=== PATIENT | male | born 1965 | race Caucasian/White ===

== ENCOUNTER 2020-08-06 01:18 | Emergency (ER) | payer OTHER ==
[2020-08-06 01:31] VITALS: TEMP 98.5
[2020-08-06] MEDS ORDERED: HYDROmorphone 1 MG/ML 1 ML SYRINGE IVP STA (01:36)
[2020-08-06] MEDS ORDERED: KETAMINE 10 MG/ML 20 ML VIAL IV ONE (01:36)
[2020-08-06] MEDS ORDERED: SODIUM CHLORIDE 0.9% 1,000 ML IV STA (01:36)
[2020-08-06] MEDS ORDERED: DIAZEPAM 5 MG/ML 2 ML INJ IVP STA (01:36)
[2020-08-06] MEDS ORDERED: SODIUM CHLORIDE 0.9% 500 ML 500 ML IV STA (01:36)
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
[2020-08-06] MEDS ORDERED: KETAMINE 50 MG/ML 10 ML VIAL IV ONE (02:06)
[2020-08-06 02:15] LABS: Basophils # (A) 0.2 k/uL (0-0.2); Basophils % (A) 1 %; Eosinophils # (A) 0.4 k/uL (0-0.7); Eosinophils % (A) 3 %; HCT 40.9 % (39.0-53.0); HGB 13.3 gm/dL (13.0-17.5); Lymphocytes # (A) 4.2 k/uL (1.0-4.8); Lymphocytes % (A) 34 %; MCH 29.7 pg (25.0-35.0); MCHC 32.5 g/dL (31.0-37.0); MCV 91.4 fL (80.0-100.0); Mean Platelet Volume 7.2; Monocytes # (A) 0.6 k/uL (0-1.0); Monocytes % (A) 5 %; Neutrophils # (A) 6.6 k/uL (1.3-7.7); Neutrophils % (A) 54 %; Platelet Count 284 k/uL (150-450); RBC 4.47 m/uL (4.30-5.90); RDW 11.7 % (11.5-15.5); WBC 12.2 k/uL (3.8-10.6)
[2020-08-06 02:19] LABS: ALT 43 U/L (4-49); AST 73 U/L (17-59); African American GFR (CKD) >90 (>60 ml/min/1.73 sqM); Albumin 4.7 g/dL (3.5-5.0); Alkaline Phosphatase 94 U/L (38-126); Anion Gap 12 mmol/L; Blood Urea Nitrogen 18 mg/dL (9-20); Calcium 9.4 mg/dL (8.4-10.2); Carbon Dioxide 24 mmol/L (22-30); Chloride 103 mmol/L (98-107); Glucose 104 mg/dL (74-99); Non-African American GFR(CKD) 84 (>60 ml/min/1.73 sqM); Potassium 4.3 mmol/L (3.5-5.1); Sodium 139 mmol/L (137-145); Total Bilirubin 0.4 mg/dL (0.2-1.3); Total Protein 7.1 g/dL (6.3-8.2)
[2020-08-06 02:23] LABS: Alcohol 193 mg/dL
[2020-08-06 02:54] VITALS: BP 148/89; PULSE 109; RESP 19
== END 2020-08-06 02:54 | disposition other institution (70) ==
LOC: EC 01:18
DX: T23.002A Burn of unspecified degree of left hand, unspecified site, initial encounter (principal); T23.252A Burn of second degree of left palm, initial encounter; T23.222A Burn of second degree of single left finger (nail) except thumb, initial encounter; F10.129 Alcohol abuse with intoxication, unspecified; X02.1XXA Exposure to smoke in controlled fire in building or structure, initial encounter; Y92.89 Other specified places as the place of occurrence of the external cause
CPT/HCPCS: 36415; 80053; 85025; 80320; 99284; 96374; 96375; 96361; J3360; J1170

== ENCOUNTER → 2025-04-08 | Outpatient (CLI) | payer MEDICARE ==
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
== END | disposition home or self-care (01) ==
LOC: RADXRMAIN 10:13
PROVIDERS: ATTEND Family Medicine
DX: M43.16 Spondylolisthesis, lumbar region (principal); M62.838 Other muscle spasm; M54.32 Sciatica, left side
CPT/HCPCS: 72100; 73502

== ENCOUNTER 2025-04-21 13:16 | Observation (INO) | payer OTHER ==
--- NOTE | 2025-04-21 13:53 | ED ---
General Adult HPI - General Chief complaint: Nausea/Vomiting/Diarrhea Stated complaint: Dizziness,Vomiting Time Seen by Provider: 04/21/25 13:52 Source: patient, family (), RN notes reviewed, old records reviewed Mode of arrival: wheelchair Limitations: no limitations - History of Present Illness Initial comments: 60-year-old male accompanied by his presented to the ER for evaluation of nausea and vomiting. reports for the past 3-week patient has been complaining of left leg pain. He has been seen numerous times by PCP, chiropractor and once here in the emergency department given this pain. Patient was diagnosed with sciatic shingles and started on valacyclovir and Percocet for pain control on 04-09-2025. reports pain has persisted. Patient has been taking numerous medications prescribed by PCP and here in the emergency d epartment without relief of symptoms. She states today after receiving pain medication patient had numerous bouts of emesis. Patient also reports feeling dizzy but contributes this to his history of vertigo. Patient states he is extremely cold and shivering but denies known fevers. He also reports today he was having a discomfort to his central chest. No radiation of this sensation. Denies shortness of breath. No history of DVTs or PEs. No current blood thinner use. No recent travel. Patient admits to smoking marijuana. - Related Data Home Medications Medication Instructions Recorded Confirmed Multivitamins, Thera [Multivitamin 1 tab PO DAILY 04/21/25 04/21/25 (formulary)] oxyCODONE-APAP 10-325MG [Percocet 1 - 2 tab PO QID PRN 04/21/25 04/21/25 10-325 mg] predniSONE See Taper PO DIRECTED 04/21/25 04/21/25 traZODone HCL [Desyrel] 100 mg PO HS 04/21/25 04/21/25 Allergies Allergy/AdvReac Type Severity Reaction Status Date / Time rocuronium Allergy Anaphylaxis Verified 04/21/25 16:52 Review of Systems ROS Statement: Those systems with pertinent positive or pertinent negative responses have been documented in the HPI. ROS Other: All systems not noted in ROS Statement are negative. Past Medical History Past Medical History: No Reported History History of Any Multi-Drug Resistant Organisms: None Reported Past Surgical History: Appendectomy Additional Past Surgical History / Comment(s): lei left hand Past Psychological History: No Psychological Hx Reported Smoking Status: Never smoker Past Drug Use History: Marijuana General Exam Limitations: no limitations General appearance: alert, in no apparent distress, anxious Respiratory exam: Present: normal lung sounds bilaterally. Absent: respiratory distress, wheezes, rales, rhonchi, stridor Cardiovascular Exam: Present: tachycardia, irregular rhythm, normal heart sounds GI/Abdominal exam: Present: soft, normal bowel sounds. Absent: distended, tenderness, guarding, rebound, rigid Extremities exam: Present: normal inspection, full ROM, normal capillary refill. Absent: tenderness, pedal edema, joint swelling, calf tenderness Neurological exam: Present: alert, oriented X3, CN II-XII intact Skin exam: Present: warm, intact, normal color, rash (Scabbed healing zoster rash to left calf), diaphoretic (mild) Course Vital Signs 04/21/25 04/21/25 04/21/25 13:26 14:03 15:32 Temperature 97.7 F 98.2 F Pulse Rate 105 H 56 L Pulse Rate [ 113 H Cyber Transport Systems Specialist ] Respiratory 20 18 Rate Blood Pressure 149/101 142/107 O2 Sat by Pulse 100 100 Oximetry - Reevaluation(s) Reevaluation #1: 04/21/25 17:[address] Cortés who accepts admission. He was requesting neurology consultation for neuralgia of left lower extremity. EKG Findings - EKG Comments: EKG Findings:: EKG taken at 14: 38 showing atrial fibrillation with rapid ventricular response. No ST segment elevations or depressions. No T wave inversions. Ventricular rate 121, QRS duration 116, QT/QTc 341/413. Medical Decision Making - Medical Decision Making Was pt. sent in by a medical professional or institution (, PA, NURSING FACULTY, urgent care, hospital, or intermediate...) When possible be specific @ -No Did you speak to anyone other than the patient for history (EMS, parent, family, police, friend...)? What history was obtained from this source @ -Patient's , bedside, aiding in HPI and past medical history. Did you review nursing and triage notes (agree or disagree)? Why? @ -I reviewed and agree with nursing and triage notes Were old charts reviewed (outside hosp., previous admission, EMS record, old EKG, old radiological studies, urgent care reports/EKG's, intermediate records)? Report findings @ -ER visit from 04-09-2025 reviewed. Patient evaluated for left leg pain diagnosed with herpes zoster. Patient was started on valacyclovir and Percocet. Differential Diagnosis (chest pain, altered mental status, abdominal pain women, abdominal pain men, vaginal bleeding, weakness, fever, dyspnea, syncope, headache, dizziness, GI bleed, back pain, seizure, CVA, palpatations, mental health, musculoskeletal)? @ -Differential Dizziness:Benign paroxysmal positional Vertigo, Meniere's disease, otitis media, acoustic neuroma, vertebrobasilar insufficiency, cerebellar stroke, encephalitis, hypovolemic, arrhythmia, coronary artery syndrome, anemia, this is not meant to be an all-inclusive list EKG interpreted by me (3pts min.). @ -As above X-rays interpreted by me (1pt min.). @ -CXR interpreted me negative for acute cardiopulmonary process. CT interpreted by me (1pt min.). @ -None done U/S interpreted by me (1pt. min.). @ -None done What testing was considered but not performed or refused? (CT, X-rays, U/S, labs)? Why? @ -None What meds were considered but not given or refused? Why? @ -None Did you discuss the management of the patient with other professionals (professionals i.e. , PA, NURSING FACULTY, lab, RT, psych nurse, forensic social worker, aircraft body repairer, teacher, classification officer, lining caser)? Give summary @ -Yes, case discussed with Dr. Cortés for admission. Requesting neurology consultation for left lower extremity neuralgia. Was smoking cessation discussed for >3mins.? @ -No Was critical care preformed (if so, how long)? @ -Yes, 31 minutes Were there social determinants of health that impacted care today? How? (Homelessness, low income, unemployed, alcoholism, drug addiction, transportation, low edu. Level, literacy, decrease access to med. care, detention, rehab)? @ -No Was there de-escalation of care discussed even if they declined (Discuss DNR or withdrawal of care, Hospice)? DNR status @ -No What co-morbidities impacted this encounter? (DM, HTN, Smoking, COPD, CAD, Cancer, CVA, ARF, Chemo, Hep., AIDS, mental health diagnosis, sleep apnea, morbid obesity)? @ -None Was patient admitted / discharged? Hospital course, mention meds given and route, prescriptions, significant lab abnormalities, going to OR and other pertinent info. @ -Admitted. 60-year-old male presented to the ER for evaluation of nausea and vomiting.Upon arrival patient tachycardic at 105 bpm and hypertensive 149/101. Vitals otherwise stable. Upon my examination patient is mildly diaphoretic and actively vomiting during exam. EKG obtained and patient found to be in new onset atrial fibrillation with RVR ventricular rate 121 bpm. No acute evidence of infarct or ischemia. Laboratory studies remarkable for leukocytosis 11.8 with a left shift and hyperlactemia 5.2 likely reactive. Patient did receive IV fluid bolus in the emergency department. Laboratory studies otherwise unremarkable. Given new onset atrial fibrillation, troponin and D-dimer ordered. Troponin undetectable, <0.012. D-dimer negative at 0.39. Chest x-ray negative for acute process. Patient started on heparin and Cardizem along with 2 g of magnesium. 10 mg Cardizem bolus and Cardizem started at 5 mg/hr. Maintenance fluids ordered for elevated lactic acid. Patient provided with symptomatic control with IV Zofran, Tylenol and Dilaudid, with improvement upon reevaluation. Admission considered given new onset atrial fibrillation this was discussed with Dr. Cortés who accepts admission. Cardiology and neurology on consult. Patient and patient's family updated on today's finding. Patient is agreeable for admission and admitted in stable condition for further evaluation and treatment. Case discussed with ED attending, Dr. Woodard. Undiagnosed new problem with uncertain prognosis? @ -No Drug Therapy requiring intensive monitoring for toxicity (Heparin, Nitro, Insulin, Cardizem)? @ -Yes, heparin and Cardizem Were any procedures done? @ -No Diagnosis/symptom? @ -New onset atrial fibrillation/hyperlactemia Acute, or Chronic, or Acute on Chronic? @ -Acute Uncomplicated (without systemic symptoms) or Complicated (systemic symptoms)? @ -Complicated Side effects of treatment? @ -No Exacerbation, Progression, or Severe Exacerbation? @ -No Poses a threat to life or bodily function? How? (Chest pain, [place], [place], pneumonia, PE, COPD, DKA, ARF, appy, cholecystitis, CVA, Diverticulitis, Homicidal, Suicidal, threat to staff... and all critical care pts) @ -Yes, untreated atrial fibrillation can lead to increased blood clot formation which can lead to stroke. - Lab Data Result diagrams: 04/21/25 14:03 04/21/25 14:03 Lab Results 04/21/25 04/21/25 04/21/25 Range/Units 14:03 14:03 14:03 WBC 11.84 H (4.50-10.00) 10*3/uL RBC 4.51 (4.40-5.60) 10*6/uL Hgb 13.8 (13.0-17.0) g/dL Hct 39.7 (39.6-50.0) % MCV 88.0 (80.0-97.0) fL MCH 30.6 (27.0-32.0) pg MCHC 34.8 (32.0-37.0) g/dL Plt Count 292 (140-440) 10*3/uL MPV 10.4 (9.5-12.2) fL Immature Gran % (Auto) 0.5 % Neutrophils % 71.8 % Lymphocytes % 19.4 % Monocytes % 6.1 % Eosinophils % 1.4 % Basophils % 0.8 % Immature Gran # 0.06 H (0.00-0.04) 10*3/uL Neutrophils # 8.50 H (1.80-7.70) 10*3/uL Lymphocytes # 2.30 (0.90-5.00) 10*3/uL Monocytes # 0.72 (0.20-1.00) 10*3/uL Eosinophils # 0.16 (0.04-0.35) 10*3/uL Basophils # 0.10 (0.00-0.10) 10*3/uL PT (10.0-12.5) sec INR (<1.2) APTT (22.0-30.0) sec D-Dimer (<0.60) mg/L FEU Sodium 142 (137-145) mmol/L Potassium 3.5 (3.5-5.1) mmol/L Chloride 105 (98-107) mmol/L Carbon Dioxide 23 (22-30) mmol/L Anion Gap 14 mmol/L BUN 12 (9-20) mg/dL Creatinine 0.77 (0.66-1.25) mg/dL Est GFR (CKD-EPI)AfAm >90 (>60 ml/min/1.73 sqM) Est GFR (CKD-EPI)NonAf >90 (>60 ml/min/1.73 sqM) Glucose 136 H (74-99) mg/dL Lactic Ac Sepsis Rflx Plasma Lactic Acid Mo 5.2 H* (0.7-2.0) mmol/L Calcium 9.8 (8.4-10.2) mg/dL Magnesium (1.6-2.3) mg/dL Total Bilirubin 0.6 (0.2-1.3) mg/dL AST 24 (17-59) U/L ALT 35 (4-49) U/L Alkaline Phosphatase 82 (38-126) U/L Troponin I (0.000-0.034) ng/mL Total Protein 7.1 (6.3-8.2) g/dL Albumin 4.7 (3.5-5.0) g/dL Lipase 98 (23-300) U/L 04/21/25 04/21/25 04/21/25 Range/Units 14:03 15:10 16:10 WBC (4.50-10.00) 10*3/uL RBC (4.40-5.60) 10*6/uL Hgb (13.0-17.0) g/dL Hct (39.6-50.0) % MCV (80.0-97.0) fL MCH (27.0-32.0) pg MCHC (32.0-37.0) g/dL Plt Count (140-440) 10*3/uL MPV (9.5-12.2) fL Immature Gran % (Auto) % Neutrophils % % Lymphocytes % % Monocytes % % Eosinophils % % Basophils % % Immature Gran # (0.00-0.04) 10*3/uL Neutrophils # (1.80-7.70) 10*3/uL Lymphocytes # (0.90-5.00) 10*3/uL Monocytes # (0.20-1.00) 10*3/uL Eosinophils # (0.04-0.35) 10*3/uL Basophils # (0.00-0.10) 10*3/uL PT 10.8 (10.0-12.5) sec INR 1.0 (<1.2) APTT 23.0 (22.0-30.0) sec D-Dimer 0.39 (<0.60) mg/L FEU Sodium (137-145) mmol/L Potassium (3.5-5.1) mmol/L Chloride (98-107) mmol/L Carbon Dioxide (22-30) mmol/L Anion Gap mmol/L BUN (9-20) mg/dL Creatinine (0.66-1.25) mg/dL Est GFR (CKD-EPI)AfAm (>60 ml/min/1.73 sqM) Est GFR (CKD-EPI)NonAf (>60 ml/min/1.73 sqM) Glucose (74-99) mg/dL Lactic Ac Sepsis Rflx Y Plasma Lactic Acid Mo (0.7-2.0) mmol/L Calcium (8.4-10.2) mg/dL Magnesium 1.7 (1.6-2.3) mg/dL Total Bilirubin (0.2-1.3) mg/dL AST (17-59) U/L ALT (4-49) U/L Alkaline Phosphatase (38-126) U/L Troponin I (0.000-0.034) ng/mL Total Protein (6.3-8.2) g/dL Albumin (3.5-5.0) g/dL Lipase (23-300) U/L // Range/Units 16:10 WBC (4.50-10.00) 10*3/uL RBC (4.40-5.60) 10*6/uL Hgb (13.0-17.0) g/dL Hct (39.6-50.0) % MCV (80.0-97.0) fL MCH (27.0-32.0) pg MCHC (32.0-37.0) g/dL Plt Count (140-440) 10*3/uL MPV (9.5-12.2) fL Immature Gran % (Auto) % Neutrophils % % Lymphocytes % % Monocytes % % Eosinophils % % Basophils % % Immature Gran # (0.00-0.04) 10*3/uL Neutrophils # (1.80-7.70) 10*3/uL Lymphocytes # (0.90-5.00) 10*3/uL Monocytes # (0.20-1.00) 10*3/uL Eosinophils # (0.04-0.35) 10*3/uL Basophils # (0.00-0.10) 10*3/uL PT (10.0-12.5) sec INR (<1.2) APTT (22.0-30.0) sec D-Dimer (<0.60) mg/L FEU Sodium (137-145) mmol/L Potassium (3.5-5.1) mmol/L Chloride (98-107) mmol/L Carbon Dioxide (22-30) mmol/L Anion Gap mmol/L BUN (9-20) mg/dL Creatinine (0.66-1.25) mg/dL Est GFR (CKD-EPI)AfAm (>60 ml/min/1.73 sqM) Est GFR (CKD-EPI)NonAf (>60 ml/min/1.73 sqM) Glucose (74-99) mg/dL Lactic Ac Sepsis Rflx Plasma Lactic Acid Mo (0.7-2.0) mmol/L Calcium (8.4-10.2) mg/dL Magnesium (1.6-2.3) mg/dL Total Bilirubin (0.2-1.3) mg/dL AST (17-59) U/L ALT (4-49) U/L Alkaline Phosphatase (38-126) U/L Troponin I <0.012 (0.000-0.034) ng/mL Total Protein (6.3-8.2) g/dL Albumin (3.5-5.0) g/dL Lipase (23-300) U/L - Radiology Data Radiology results: report reviewed, image reviewed Disposition Clinical Impression: New onset atrial fibrillation, Hyperlactatemia Disposition: ADMITTED IP TO THIS [facility] Condition: Stable Referrals: Lázaro Cortés MD [Primary Care Provider] - 1-2 days Time of Disposition: 17:52
[2025-04-21 14:15] LABS: Basophils % (A) 0.8 %; Eosinophils # (A) 0.16 10*3/uL (0.04-0.35); Eosinophils % (A) 1.4 %; HCT 39.7 % (39.6-50.0); HGB 13.8 g/dL (13.0-17.0); Lymphocytes % (A) 19.4 %; MCH 30.6 pg (27.0-32.0); MCHC 34.8 g/dL (32.0-37.0); Mean Platelet Volume 10.4 fL (9.5-12.2); Monocytes # (A) 0.72 10*3/uL (0.20-1.00); Monocytes % (A) 6.1 %; Neutrophils % (A) 71.8 %; Platelet Count 292 10*3/uL (140-440); RBC 4.51 10*6/uL (4.40-5.60); RDW 12.6 % (11.5-14.5); WBC 11.84 10*3/uL (4.50-10.00)
[2025-04-21 14:32] LABS: AST 24 U/L (17-59); African American GFR (CKD) >90 (>60 ml/min/1.73 sqM); Albumin 4.7 g/dL (3.5-5.0); Alkaline Phosphatase 82 U/L (38-126); Anion Gap 14 mmol/L; Blood Urea Nitrogen 12 mg/dL (9-20); Calcium 9.8 mg/dL (8.4-10.2); Carbon Dioxide 23 mmol/L (22-30); Chloride 105 mmol/L (98-107); Glucose 136 mg/dL (74-99); Lipase 98 U/L (23-300); Non-African American GFR(CKD) >90 (>60 ml/min/1.73 sqM); Potassium 3.5 mmol/L (3.5-5.1); Sodium 142 mmol/L (137-145); Total Bilirubin 0.6 mg/dL (0.2-1.3); Total Protein 7.1 g/dL (6.3-8.2)
[2025-04-21 14:39] LABS: ALT 35 U/L (4-49)
[2025-04-21] MEDS: SODIUM CHLORIDE 0.9% 1,000 ML IV ONE (14:42)
[2025-04-21] MEDS: ACETAMINOPHEN TAB 325 MG TAB PO STA (14:45)
[2025-04-21] MEDS: HYDROmorphone 1 MG/ML 1 ML SYRINGE IVP STA (14:46)
[2025-04-21] MEDS: ONDANSETRON 4 MG/2 ML VIAL IVP STA (14:47)
[2025-04-21 16:37] LABS: Prothrombin Time 10.8 sec (10.0-12.5)
[2025-04-21] MEDS: HEPARIN SODIUM 1,000 UN/ML (10ML VL) IV ONE (16:43)
[2025-04-21] MEDS: HEPARIN SOD,PORK IN 0.45% NACL 25,000 UNIT in 0.45% NACL 1 250ML.BAG IV SCH (16:45)
--- NOTE | 2025-04-21 17:45 | XR ---
EXAMINATION TYPE: XR chest 2V DATE OF EXAM: 04/21/2025 CLINICAL INDICATION: Male, 60 years old with history of new onset afib, TECHNIQUE: Frontal and lateral views of the chest are obtained. COMPARISON: None FINDINGS: Overlying EKG leads are present. There is no focal air space opacity, pleural effusion, or pneumothorax seen. The cardiac silhouette size is within normal limits. The osseous structures are intact. IMPRESSION: No acute cardiopulmonary process. [facility], , 04/21/2025 5:43 PM
[2025-04-21] MEDS ORDERED: NALOXONE 0.4 MG/ML 1 ML VIAL IV PRN (17:55)
[2025-04-21] MEDS: DILTIAZEM 125 MG in DEXTROSE 5% IN WATER 100 ML IV SCH (20:19)
[2025-04-21] MEDS: DILTIAZEM 5 MG/ML 5 ML VIAL IVP STA (20:20)
[2025-04-21] MEDS: SODIUM CHLORIDE 0.9% 1,000 ML IV SCH (20:24)
[2025-04-21] MEDS: MAGNESIUM SULFATE-D5W PMX 1 GM in DEXTROSE/WATER 1 100ML.BAG IVPB SCH (20:24)
[2025-04-21] MEDS: ONDANSETRON 4 MG/2 ML VIAL IVP PRN (20:31)
[2025-04-21] MEDS: ACETAMINOPHEN TAB 325 MG TAB PO PRN (20:32)
[2025-04-21] MEDS: HEPARIN SODIUM 1,000 UN/ML (10ML VL) IV PRN (22:11)
[2025-04-22] MEDS: HYDROmorphone 1 MG/ML 1 ML SYRINGE IVP PRN (02:19)
[2025-04-22 05:20] LABS: INR 1.1 (<1.2); Prothrombin Time 12.1 sec (10.0-12.5)
--- NOTE | 2025-04-22 08:36 | P.CRDCN ---
History of Present Illness Consult date: 04/22/25 Reason for Consult (text): New onset atrial fibrillation History of present illness: This is shown 60-year-old male patient with no previous cardiac history and does not follow with a [employer]. He has no significant past medical history. He has been recently treated for shingles by his PCP and on a combination of prednisone, trazodone and Percocet. Patient states he has had significant pain this been uncontrolled and then developed vomiting that started at 9 in the morning with repeated episodes and then some blood in his emesis. He was told to come into the hospital for further evaluation. He denies any lightheadedness or dizziness. No chest pain or shortness of breath. He denies any history of atrial fibrillation. Patient was found to be in atrial fibrillation and started on Cardizem drip and heparin drip. Blood pressure 130/87, heart rate 68 and pulse ox 98% on room air. Patient has converted to sinus rhythm this morning. Patient is seen today in the emergency center waiting for a bed on the cardiac stepdown unit. -EKG: #1 atrial fibrillation ventricular rate 121 bpm. #2 sinus rhythm 56 bpm. -Chest x-ray: No acute findings. -Laboratory studies: WBC 11.8, hemoglobin 13.8, D-dimer 0.39. BUN 12 and creatinine 0.77, potassium 3.5. Troponin negative x 1. Magnesium 1.7. -Home cardiac medications: None. Review Of Systems: At the time of my exam: CONSTITUTIONAL: Denies fever or chills. HEENT: Denies blurred vision, vision changes, or eye pain. Denies hemoptysis CARDIOVASCULAR: Denies chest pain. Denies orthopnea. Denies PND. Denies palpitations RESPIRATORY: Denies shortness of breath. GASTROINTESTINAL: Denies abdominal pain. Denies nausea or vomiting. HEMATOLOGIC: Denies bleeding disorders. GENITOURINARY: Denies any blood in urine. SKIN: Denies puritis. Denies rash. Physical examination: Gen: This is 60-year-old male in no acute distress. VS: reviewed HEENT: Head is atraumatic, normocephalic. Pupils equal, round. Sclerae is anicteric. NECK: Supple. No JVD. LUNGS: Clear to auscultation. No wheezes or rhonchi. No intercostal retractions. HEART: Regular rate and rhythm. No murmur. ABDOMEN: Soft No tenderness. EXTREMITIES: No pedal edema. No calf tenderness. NEUROLOGICAL: Patient is awake, alert and oriented x3. Assessment: Paroxysmal atrial fibrillation with RVR, converted to sinus rhythm Shingles Plan: Discontinue heparin drip and Cardizem drip Start patient on metoprolol succinate 12.5 mg daily [id number] score 0, no need for anticoagulation No need to obtain echocardiogram. This may be done as an outpatient Patient is cleared for discharge and will follow-up with Dr. Cruz in 1 week. Thank you kindly for this consultation. Nurse practitioner note has been reviewed, I agree with documented findings and plan of care. Patient was seen and examined. Past Medical History Past Medical History: No Reported History History of Any Multi-Drug Resistant Organisms: None Reported Past Surgical History: Appendectomy Additional Past Surgical History / Comment(s): lei left hand Past Psychological History: No Psychological Hx Reported Smoking Status: Never smoker Past Drug Use History: Marijuana Medications and Allergies Home Medications Medication Instructions Recorded Confirmed Type Multivitamins, Thera [Multivitamin 1 tab PO DAILY 04/21/25 04/21/25 History (formulary)] oxyCODONE-APAP 10-325MG [Percocet 1 - 2 tab PO QID PRN 04/21/25 04/21/25 History 10-325 mg] predniSONE See Taper PO DIRECTED 04/21/25 04/21/25 History traZODone HCL [Desyrel] 100 mg PO HS 04/21/25 04/21/25 History Allergies Allergy/AdvReac Type Severity Reaction Status Date / Time rocuronium Allergy Anaphylaxis Verified 04/21/25 16:52 Physical Exam Vitals: Vital Signs Temp Pulse Pulse Resp BP Pulse Ox 04/22/25 05:39 59 L 17 130/87 99 04/22/25 04:02 66 19 132/85 97 04/22/25 01:52 57 L 15 132/86 99 04/22/25 00:15 97.9 F 61 17 132/86 100 04/21/25 23:22 64 19 100 04/21/25 22:15 75 18 133/85 100 04/21/25 21:54 99 18 136/97 96 04/21/25 18:57 98 18 136/97 96 04/21/25 18:04 115 H 04/21/25 15:32 113 H 04/21/25 14:03 98.2 F 56 L 18 142/107 100 04/21/25 13:26 97.7 F 105 H 20 149/101 100 Intake and Output 04/21/25 04/21/25 04/22/25 14:59 22:59 06:59 Intake Total 50.135 95.152 Balance 50.135 95.152 Intake: Intake, IV Titration 50.135 95.152 Amount Heparin Sod,Pork in 0.45% 50.135 95.152 NaCl 25,000 unit In 0.45 % NaCl 1 250ml.bag @ 12 UNITS/KG/HR 9.199 mls/hr IV .Q24H [facility] Rx#: [id number] Other: Weight 76.657 kg Results 04/21/25 14:03 04/21/25 14:03 Cardiac Enzymes 04/21/25 04/21/25 Range/Units 14:03 16:10 AST 24 (17-59) U/L Troponin I <0.012 (0.000-0.034) ng/mL Coagulation 04/21/25 04/21/25 04/22/25 Range/Units 16:10 20:40 04:30 PT 10.8 12.1 (10.0-12.5) sec APTT 23.0 28.8 (22.0-30.0) sec 04/22/25 Range/Units 04:30 PT (10.0-12.5) sec APTT 24.7 (22.0-30.0) sec CBC 04/21/25 Range/Units 14:03 WBC 11.84 H (4.50-10.00) 10*3/uL RBC 4.51 (4.40-5.60) 10*6/uL Hgb 13.8 (13.0-17.0) g/dL Hct 39.7 (39.6-50.0) % Plt Count 292 (140-440) 10*3/uL Comprehensive Metabolic Panel 04/21/25 Range/Units 14:03 Sodium 142 (137-145) mmol/L Potassium 3.5 (3.5-5.1) mmol/L Chloride 105 (98-107) mmol/L Carbon Dioxide 23 (22-30) mmol/L BUN 12 (9-20) mg/dL Creatinine 0.77 (0.66-1.25) mg/dL Glucose 136 H (74-99) mg/dL Calcium 9.8 (8.4-10.2) mg/dL AST 24 (17-59) U/L ALT 35 (4-49) U/L Alkaline Phosphatase 82 (38-126) U/L Total Protein 7.1 (6.3-8.2) g/dL Albumin 4.7 (3.5-5.0) g/dL Current Medications Generic Name Dose Route Start Last Admin Trade Name Freq PRN Reason Stop Dose Admin Acetaminophen 650 mg 04/21/25 17:55 04/22/25 00:30 Acetaminophen Tab 325 Mg Tab PO 650 mg Q6HR PRN Administration Mild Pain or Fever > 100.5 Heparin Sodium (Porcine) 0 unit 04/21/25 14:54 04/22/25 05:59 Heparin Sodium 1,000 Un/Ml (10ml Vl) IV 3,832.5 unit PER PROTOCOL PRN Administration Low PTT Protocol Hydromorphone HCl 1 mg 04/22/25 02:14 04/22/25 05:33 Hydromorphone 1 Mg/Ml 1 Ml Syringe IVP 1 mg Q4HR PRN Administration Pain Scale 7 to 10 Heparin Sodium/Sodium Chloride 250 mls @ 9.199 mls/hr 04/21/25 15:00 04/22/25 06:00 25,000 unit/ Sodium Chloride IV 19.83 units/kg/hr .Q24H [facility] 15.199 mls/hr Titration Protocol 12 UNITS/KG/HR Diltiazem HCl 125 mg/ Dextrose 125 mls @ 5 mls/hr 04/21/25 15:00 04/21/25 20:19 /Water IV 5 mg/hr .Q24H [facility] 5 mls/hr Administration Protocol 5 MG/HR Sodium Chloride 1,000 mls @ 50 mls/hr 04/21/25 18:00 04/21/25 20:24 Saline 0.9% IV 50 mls/hr .Q20H [facility] Administration Naloxone HCl 0.2 mg 04/21/25 17:55 Naloxone 0.4 Mg/Ml 1 Ml Vial IV Q2M PRN Opioid Reversal Ondansetron HCl 4 mg 04/21/25 17:55 04/21/25 20:31 Ondansetron 4 Mg/2 Ml Vial IVP 4 mg Q8HR PRN Administration Nausea And Vomiting Intake and Output 04/21/25 04/21/25 04/22/25 14:59 22:59 06:59 Intake Total 50.135 95.152 Balance 50.135 95.152 Intake: Intake, IV Titration 50.135 95.152 Amount Heparin Sod,Pork in 0.45% 50.135 95.152 NaCl 25,000 unit In 0.45 % NaCl 1 250ml.bag @ 12 UNITS/KG/HR 9.199 mls/hr IV .Q24H [facility] Rx#: [id number] Other: Weight 76.657 kg Patient Weight 04/22/25 06:59 Weight 76.657 kg 04/21/25 14:03 04/21/25 14:03
[2025-04-22] MEDS: METOPROLOL SUCCINATE (ER) 25 MG TAB.ER.24H PO SCH (08:39)
[2025-04-22 09:51] LABS: Basophils # (A) 0.06 10*3/uL (0.00-0.10); Basophils % (A) 0.4 %; Eosinophils # (A) 0.09 10*3/uL (0.04-0.35); Eosinophils % (A) 0.6 %; HCT 37.1 % (39.6-50.0); HGB 12.6 g/dL (13.0-17.0); Lymphocytes # (A) 2.58 10*3/uL (0.90-5.00); MCH 30.1 pg (27.0-32.0); MCV 88.8 fL (80.0-97.0); Mean Platelet Volume 10.9 fL (9.5-12.2); Monocytes # (A) 0.66 10*3/uL (0.20-1.00); Monocytes % (A) 4.6 %; Neutrophils # (A) 10.86 10*3/uL (1.80-7.70); Neutrophils % (A) 75.9 %; Platelet Count 270 10*3/uL (140-440); RBC 4.18 10*6/uL (4.40-5.60); WBC 14.32 10*3/uL (4.50-10.00)
[2025-04-22 10:03] VITALS: RESP 18
[2025-04-22 10:11] LABS: Basophils # (A) 0.09 10*3/uL (0.00-0.10); Basophils % (A) 0.6 %; Eosinophils # (A) 0.05 10*3/uL (0.04-0.35); Eosinophils % (A) 0.4 %; HCT 38.5 % (39.6-50.0); Lymphocytes # (A) 2.36 10*3/uL (0.90-5.00); Lymphocytes % (A) 16.6 %; MCHC 33.8 g/dL (32.0-37.0); MCV 88.7 fL (80.0-97.0); Mean Platelet Volume 10.5 fL (9.5-12.2); Monocytes # (A) 0.63 10*3/uL (0.20-1.00); Monocytes % (A) 4.4 %; Neutrophils # (A) 11.05 10*3/uL (1.80-7.70); Neutrophils % (A) 77.5 %; Platelet Count 266 10*3/uL (140-440); RBC 4.34 10*6/uL (4.40-5.60); WBC 14.25 10*3/uL (4.50-10.00)
[2025-04-22 10:17] LABS: ALT 22 U/L (4-49); AST 18 U/L (17-59); African American GFR (CKD) >90 (>60 ml/min/1.73 sqM); Albumin 3.6 g/dL (3.5-5.0); Alkaline Phosphatase 63 U/L (38-126); Anion Gap 8 mmol/L; Blood Urea Nitrogen 13 mg/dL (9-20); Calcium 8.6 mg/dL (8.4-10.2); Carbon Dioxide 23 mmol/L (22-30); Chloride 110 mmol/L (98-107); Glucose 104 mg/dL (74-99); Magnesium 1.7 mg/dL (1.6-2.3); Non-African American GFR(CKD) >90 (>60 ml/min/1.73 sqM); Potassium 3.1 mmol/L (3.5-5.1); Sodium 141 mmol/L (137-145); Total Bilirubin 0.6 mg/dL (0.2-1.3); Total Protein 5.8 g/dL (6.3-8.2)
[2025-04-22] MEDS: POTASSIUM CHLORIDE ER 20 MEQ TAB.ER PO SCH (12:12)
[2025-04-22] MEDS: GABAPENTIN 300 MG CAP PO SCH (12:12)
[2025-04-22] MEDS: PANTOPRAZOLE 40 MG/10 ML VIAL IVP SCH (12:12)
[2025-04-22] MEDS: MAGNESIUM SULFATE-D5W PMX 1 GM in DEXTROSE/WATER 1 100ML.BAG IVPB ONE (12:13)
--- NOTE | 2025-04-22 12:47 | P.HPIM ---
History of Present Illness H&P Date: 04/22/25 Chief Complaint: Chest discomfort History and Physical and Discharge Summary: This is a 60-year-old gentleman with past medical history significant for recently completed Acyclovir for left lower extremity shingles with reported sciatica nerve involvement, presented to the ER with complaints of uncontrolled "sciatica pain", nausea, vomiting, nonradiating mid chest discomfort. Denies diaphoresis, denies lightheadedness, dizziness or focal deficits. Denies prior history of atrial fibrillation. On admission EKG reported atrial fibrillation with ventricular rate of 120s. Cardizem and heparin drips initiated. Converted to sinus rhythm this morning. Troponin negative x 1, vital signs stable. Chest x-ray reporting nonacute.afebrile, WBC 11.8, hemoglobin 13, bicarb 23 BUN 13 creatinine 0.61, potassium 3.1 Magnesium 1.7 TSH 0.958. Currently denies chest pain, palpitations or shortness of breath. Currently denies nausea, vomiting or diarrhea. Denies abdominal pain. Review of Systems ROS Statement: Those systems with pertinent positive or pertinent negative responses have been documented in the HPI. ROS Other: All systems not noted in ROS Statement are negative. Past Medical History Past Medical History: No Reported History History of Any Multi-Drug Resistant Organisms: None Reported Past Surgical History: Appendectomy Additional Past Surgical History / Comment(s): lei left hand Past Psychological History: No Psychological Hx Reported Smoking Status: Never smoker Past Drug Use History: Marijuana Medications and Allergies Home Medications Medication Instructions Recorded Confirmed Type Multivitamins, Thera [Multivitamin 1 tab PO DAILY 04/21/25 04/21/25 History (formulary)] oxyCODONE-APAP 10-325MG [Percocet 1 - 2 tab PO QID PRN 04/21/25 04/21/25 History 10-325 mg] predniSONE See Taper PO DIRECTED 04/21/25 04/21/25 History traZODone HCL [Desyrel] 100 mg PO HS 04/21/25 04/21/25 History Famotidine [Pepcid] 20 mg PO BID #60 tablet 04/22/25 Rx Metoprolol Succinate (ER) [Toprol 12.5 mg PO DAILY #30 tab 04/22/25 Rx XL] Allergies Allergy/AdvReac Type Severity Reaction Status Date / Time rocuronium Allergy Anaphylaxis Verified 04/21/25 16:52 Physical Exam Vitals: Vital Signs Temp Pulse Pulse Resp BP Pulse Ox 04/22/25 11:07 18 04/22/25 10:03 18 04/22/25 09:57 67 18 138/88 99 04/22/25 08:40 16 04/22/25 07:52 62 18 137/79 100 04/22/25 06:50 59 L 18 137/79 98 04/22/25 05:39 59 L 17 130/87 99 04/22/25 04:02 66 19 132/85 97 04/22/25 01:52 57 L 15 132/86 99 04/22/25 00:15 97.9 F 61 17 132/86 100 04/21/25 23:22 64 19 100 04/21/25 22:15 75 18 133/85 100 04/21/25 21:54 99 18 136/97 96 04/21/25 18:57 98 18 136/97 96 04/21/25 18:04 115 H 04/21/25 15:32 113 H 04/21/25 14:03 98.2 F 56 L 18 142/107 100 04/21/25 13:26 97.7 F 105 H 20 149/101 100 Intake and Output 04/21/25 04/22/25 04/22/25 22:59 06:59 14:59 Intake Total 50.135 95.152 Balance 50.135 95.152 Intake: Intake, IV Titration 50.135 95.152 Amount Heparin Sod,Pork in 0.45% 50.135 95.152 NaCl 25,000 unit In 0.45 % NaCl 1 250ml.bag @ 12 UNITS/KG/HR 9.199 mls/hr IV .Q24H [facility] Rx#: [id number] PHYSICAL EXAM: VITAL SIGNS: [Reviewed] GENERAL: Alert and oriented x 3, sitting up in bed, no acute distress HEENT: Atraumatic, normocephalic ,conjunctivae normal. eyes normal. Sclera anicteric. NECK: Supple, no JVD. No thyroid enlargement. No LNs CARDIOVASCULAR: S1, S2 regular.. No murmur RESPIRATION: Unlabored, equal air entry, clear to auscultation ,breath sounds diminished in the bases. No rhonchi or crackles. No bronchial breathing. ABDOMEN: Soft, nondistended, nontender . No guarding. no masses palpable. No ascites, No hepatosplenomegaly.Bowel sounds heard. LEGS: Left lower calf with dry scabs,no edema. no swelling. No calf tenderness, peripheral pulses intact. NERVOUS SYSTEM: Cranial N 2-12 grossly normal. No focal deficits. Strength and sensation grossly intact.. Skin: no lesions, no rash Results CBC & Chem 7: 04/22/25 09:57 04/22/25 08:59 Labs: Abnormal Lab Results - Last 24 Hours (Table) 04/21/25 04/21/25 04/21/25 Range/Units 14:03 14:03 14:03 WBC 11.84 H (4.50-10.00) 10*3/uL RBC (4.40-5.60) 10*6/uL Hgb (13.0-17.0) g/dL Hct (39.6-50.0) % Immature Gran # 0.06 H (0.00-0.04) 10*3/uL Neutrophils # 8.50 H (1.80-7.70) 10*3/uL Potassium (3.5-5.1) mmol/L Chloride (98-107) mmol/L Creatinine (0.66-1.25) mg/dL Glucose 136 H (74-99) mg/dL Plasma Lactic Acid Mo 5.2 H* (0.7-2.0) mmol/L Total Protein (6.3-8.2) g/dL 04/22/25 04/22/25 04/22/25 Range/Units 08:59 08:59 09:57 WBC 14.32 H 14.25 H (4.50-10.00) 10*3/uL RBC 4.18 L 4.34 L (4.40-5.60) 10*6/uL Hgb 12.6 L (13.0-17.0) g/dL Hct 37.1 L 38.5 L (39.6-50.0) % Immature Gran # 0.07 H 0.07 H (0.00-0.04) 10*3/uL Neutrophils # 10.86 H 11.05 H (1.80-7.70) 10*3/uL Potassium 3.1 L (3.5-5.1) mmol/L Chloride 110 H (98-107) mmol/L Creatinine 0.61 L (0.66-1.25) mg/dL Glucose 104 H (74-99) mg/dL Plasma Lactic Acid Mo (0.7-2.0) mmol/L Total Protein 5.8 L (6.3-8.2) g/dL Assessment and Plan Assessment: New onset, paroxysmal atrial fibrillation with fast ventricular rate, converted to sinus rhythm Shingles Plan: Continue on current medication regime ,monitoring and symptomatic treatment. Evaluated and cleared by cardiology; to be discharged home on metoprolol succinate 12.5 mg daily with no need for anticoagulation secondary to CHADS2 vascular score 0, with echo in clinic with Dr. Lassiter OP. Neurology consult canceled as patient is scheduled to see Dr. Omalley, neurology on 04/27/2025. Patient will be discharged home today in a stable condition with guarded prognosis. Discharge Medication List Multivitamins, Thera [Multivitamin (formulary)] 1 tab PO DAILY 04/21/25 [History] oxyCODONE-APAP 10-325MG [Percocet 10-325 mg] 1 - 2 tab PO QID PRN 04/21/25 [History] predniSONE See Taper PO DIRECTED 04/21/25 [History] traZODone HCL [Desyrel] 100 mg PO HS 04/21/25 [History] Famotidine [Pepcid] 20 mg PO BID #60 tablet 04/22/25 [Rx] Metoprolol Succinate (ER) [Toprol XL] 12.5 mg PO DAILY #30 tab 04/22/25 [Rx] The impression and plan of care has been dictated as directed. : I performed a history and examination of this patient, discussed the same with the dictator. I agree with the dictator's note ,documented as a scribe. Any additional findings or plans will be noted.
[2025-04-22 16:08] VITALS: BP 155/90; PULSE 64; TEMP 98.2
== END 2025-04-22 16:06 | disposition home or self-care (01) ==
LOC: EC 13:16 → 3SCARD 18:08 → INTOOBSV 18:08 → 3SCARD 20:39
PROVIDERS: ADMIT Family Medicine; ATTEND Family Medicine
DX: I48.0 Paroxysmal atrial fibrillation (principal); R74.02 Elevation of levels of lactic acid dehydrogenase [LDH]; B02.9 Zoster without complications; Z79.899 Other long term (current) drug therapy
CPT/HCPCS: 96376 ×2; 96368; 96365 ×2; 96366 ×2; 96375 ×2; 99291; 36415; 93005; 85379; 80053 ×2; 84443; 83605; 83690; 83735 ×2; 84484; 85025 ×2; 85610 ×2; 85730 ×2; 71046; G0378 ×2; J2405; J1644 ×3; J1171 ×2; J3475 ×2; J2470

== ENCOUNTER 2025-05-23 06:37 | Observation (INO) | payer OTHER ==
--- NOTE | 2025-05-23 07:06 | ED ---
General Adult HPI - General Chief complaint: Nausea/Vomiting/Diarrhea Stated complaint: Heart Palpitations Time Seen by Provider: 05/23/25 06:48 Source: patient, RN notes reviewed Mode of arrival: wheelchair Limitations: no limitations - History of Present Illness Initial comments: 60-year-old male with history of A-fib, not on blood thinners, presenting to the emergency department with his for concerns of nausea, generalized weakness, and not feeling well over the past 3 days. Patient has been having a difficult time keeping down foods and liquids due to persistent nausea. He is currently denying chest pain, heart palpitations, abdominal pain, headaches, visual disturbances, hematemesis, hematochezia, urinary or bowel habit changes. Patie nt denies drug or alcohol use prior to onset of symptoms. - Related Data Home Medications Medication Instructions Recorded Confirmed Multivitamins, Thera [Multivitamin 1 tab PO DAILY 04/21/25 05/23/25 (formulary)] oxyCODONE-APAP 10-325MG [Percocet 1 - 2 tab PO QID PRN 04/21/25 05/23/25 10-325 mg] traZODone HCL [Desyrel] 100 mg PO HS 04/21/25 05/23/25 Gabapentin 600 mg PO HS@1930 05/23/25 05/23/25 Gabapentin [Neurontin] 300 mg PO TID@0130,0730,1330 05/23/25 05/23/25 Ondansetron [Zofran] 4 mg PO DAILY 05/23/25 05/23/25 Previous Rx's Medication Instructions Recorded Metoprolol Succinate (ER) [Toprol 12.5 mg PO DAILY #30 tab 04/22/25 XL] Allergies Allergy/AdvReac Type Severity Reaction Status Date / Time lidocaine Allergy Anaphylaxis Verified 05/23/25 10:44 rocuronium Allergy Anaphylaxis Verified 05/23/25 10:44 Review of Systems ROS Statement: Those systems with pertinent positive or pertinent negative responses have been documented in the HPI. ROS Other: All systems not noted in ROS Statement are negative. Past Medical History Past Medical History: Atrial Fibrillation History of Any Multi-Drug Resistant Organisms: None Reported Past Surgical History: Appendectomy Additional Past Surgical History / Comment(s): lei left hand Past Psychological History: No Psychological Hx Reported Smoking Status: Former smoker Past Alcohol Use History: None Reported Past Drug Use History: Marijuana General Exam Limitations: no limitations Neck exam: Present: normal inspection. Absent: tenderness, meningismus, lymphadenopathy Respiratory exam: Present: normal lung sounds bilaterally. Absent: respiratory distress, wheezes, rales, rhonchi, stridor Cardiovascular Exam: Present: tachycardia, irregular rhythm. Absent: regular rate, normal rhythm GI/Abdominal exam: Present: soft, normal bowel sounds. Absent: distended, te nderness, guarding, rebound, rigid Extremities exam: Present: normal inspection, full ROM, normal capillary refill. Absent: tenderness, pedal edema, joint swelling, calf tenderness Back exam: Present: normal inspection Skin exam: Present: warm, dry, intact, normal color. Absent: rash Course Vital Signs 05/23/25 05/23/25 05/23/25 06:42 07:36 07:45 Temperature 98.5 F Pulse Rate 73 138 H 105 H Respiratory 18 20 20 Rate Blood Pressure 131/89 133/95 120/83 O2 Sat by Pulse 100 100 100 Oximetry 05/23/25 05/23/25 05/23/25 08:00 08:15 08:30 Temperature Pulse Rate 105 H 109 H 105 H Respiratory 21 20 20 Rate Blood Pressure 137/95 141/104 132/86 O2 Sat by Pulse 100 100 100 Oximetry 05/23/25 05/23/25 05/23/25 09:00 09:15 09:30 Temperature Pulse Rate 115 H 128 H 91 Respiratory 20 23 20 Rate Blood Pressure 140/89 142/97 142/107 O2 Sat by Pulse 99 99 98 Oximetry 05/23/25 05/23/25 05/23/25 09:45 10:00 10:15 Temperature 98.2 F Pulse Rate 111 H 102 H 94 Respiratory 19 18 22 Rate Blood Pressure 141/91 132/95 140/87 O2 Sat by Pulse 100 100 99 Oximetry Medical Decision Making - Medical Decision Making Was pt. sent in by a medical professional or institution (, PA, TALLOW REFINER, urgent care, hospital, or long term...) When possible be specific @ -No Did you speak to anyone other than the patient for history (EMS, parent, family, police, friend...)? What history was obtained from this source @ -No Did you review nursing and triage notes (agree or disagree)? Why? @ -I reviewed and agree with nursing and triage notes Were old charts reviewed (outside hosp., previous admission, EMS record, old EKG, old radiological studies, urgent care reports/EKG's, long term records)? Report findings @ -I reviewed your visit note from 04/21/2025 patient presented for complaints of nausea and vomiting and reported dizziness with cold sweats and patient was found to have new onset A-fib with RVR and was admitted to the hospital. Differential Diagnosis (chest pain, altered mental status, abdominal pain women, abdominal pain men, vaginal bleeding, weakness, fever, dyspnea, syncope, headache, dizziness, GI bleed, back pain, seizure, CVA, palpatations, mental health, musculoskeletal)? @ -Differential Palpitations Ventricular arrhythmias, atrial arrhythmias, myocardial infarction, anemia, thyrotoxicosis, electrolyte imbalance, hypokalemia, pulmonary embolism, pulmonary disease, drugs, alcohol, anxiety, stress.... This is not meant to be an all-inclusive list. EKG interpreted by me (3pts min.). @ -Completed at 653 atrial fibrillation with rapid ventricular response, ventricular 136, QRS 86, QT 311, QTc 391. X-rays interpreted by me (1pt min.). @ -Chest x-ray no acute cardiopulmonary disease CT interpreted by me (1pt min.). @ -None done U/S interpreted by me (1pt. min.). @ -None done What testing was considered but not performed or refused? (CT, X-rays, U/S, labs)? Why? @ -None What meds were considered but not given or refused? Why? @ -None Did you discuss the management of the patient with other professionals (professionals i.e. , PA, TALLOW REFINER, lab, RT, psych nurse, social media marketing manager, hostler helper, teacher, commissioned defence force officer, nurse case management)? Give summary @ -I spoke with patient's primary care provider, Dr. Cortés, was agreed to meet the patient with cardiology on consult for further evaluation of A-fib with RVR. Was smoking cessation discussed for >3mins.? @ -No Was critical care preformed (if so, how long)? @ -Critical care was performed for longer than 33 minutes this patient arrived to the emergency department to be found in atrial fibrillation with rapid ventricular response and was placed on a Cardizem drip. Were there social determinants of health that impacted care today? How? (Homelessness, low income, unemployed, alcoholism, drug addiction, transportation, low edu. Level, literacy, decrease access to med. care, correction, rehab)? @ -No Was there de-escalation of care discussed even if they declined (Discuss DNR or withdrawal of care, Hospice)? DNR status @ -No What co-morbidities impacted this encounter? (DM, HTN, Smoking, COPD, CAD, Cancer, CVA, ARF, Chemo, Hep., AIDS, mental health diagnosis, sleep apnea, morbid obesity)? @ -None Was patient admitted / discharged? Hospital course, mention meds given and route, prescriptions, significant lab abnormalities, going to OR and other pertinent info. @ - admitted. 60-year-old male presenting to the ER for complaints of generalized weakness nausea and vomiting. On evaluation the patient sitting in the examination bed mildly diaphoretic stating that he feels nauseated. Patient is found to be in A-fib with RVR, ventricular rate is at 136 with a blood pressure of 131/89. Patient is in no signs of respiratory distress on examination. He is denying active chest pain just stating that he does not feel well. Patient will undergo cardiac evaluation and started on a Cardizem drip with initial 10 mg IV push of Cardizem with a rate of 5 mg. He is also provided with IV fluids with concern for clinical dehydration and Zofran for nausea control. Patient's laboratory testing is unremarkable including CBC, CMP, coagulations and troponin. Patient will be admitted to internal medicine with cardiology on consult and is continued on Cardizem drip. As needed pain and nausea meds ordered. Case discussed with my attending Dr. Erickson. Patient is admitted to Dr. Cortés. Undiagnosed new problem with uncertain prognosis? @ -No Drug Therapy requiring intensive monitoring for toxicity (Heparin, Nitro, Insulin, Cardizem)? @ -Yes, Cardizem drip. Were any procedures done? @ -No Diagnosis/symptom? @ -Atrial fibrillation with rapid ventricular response Acute, or Chronic, or Acute on Chronic? @ -Acute Uncomplicated (without systemic symptoms) or Complicated (systemic symptoms)? @ -Complicated Side effects of treatment? @ -No Exacerbation, Progression, or Severe Exacerbation? @ -No Poses a threat to life or bodily function? How? (Chest pain, [place], [place], pneumonia, PE, COPD, DKA, ARF, appy, cholecystitis, CVA, Diverticulitis, Homicidal, Suicidal, threat to staff... and all critical care pts) @ -No - Lab Data Result diagrams: 05/23/25 07:27 05/23/25 07:27 Lab Results 05/23/25 05/23/25 05/23/25 Range/Units 07:27 07:27 07:27 WBC 11.94 H (4.50-10.00) 10*3/uL RBC 4.24 L (4.40-5.60) 10*6/uL Hgb 13.0 (13.0-17.0) g/dL Hct 36.4 L (39.6-50.0) % MCV 85.8 (80.0-97.0) fL MCH 30.7 (27.0-32.0) pg MCHC 35.7 (32.0-37.0) g/dL Plt Count 257 (140-440) 10*3/uL MPV 10.5 (9.5-12.2) fL Immature Gran % (Auto) 0.5 % Neutrophils % 82.1 % Lymphocytes % 11.6 % Monocytes % 5.4 % Eosinophils % 0.1 % Basophils % 0.3 % Immature Gran # 0.06 H (0.00-0.04) 10*3/uL Neutrophils # 9.81 H (1.80-7.70) 10*3/uL Lymphocytes # 1.38 (0.90-5.00) 10*3/uL Monocytes # 0.64 (0.20-1.00) 10*3/uL Eosinophils # 0.01 L (0.04-0.35) 10*3/uL Basophils # 0.04 (0.00-0.10) 10*3/uL PT 12.0 (10.0-12.5) sec INR 1.1 (<1.2) APTT 23.7 (22.0-30.0) sec Sodium 145 (137-145) mmol/L Potassium 3.9 (3.5-5.1) mmol/L Chloride 111 H (98-107) mmol/L Carbon Dioxide 20 L (22-30) mmol/L Anion Gap 14 mmol/L BUN 16 (9-20) mg/dL Creatinine 0.64 L (0.66-1.25) mg/dL Est GFR (CKD-EPI)AfAm >90 (>60 ml/min/1.73 sqM) Est GFR (CKD-EPI)NonAf >90 (>60 ml/min/1.73 sqM) Glucose 125 H (74-99) mg/dL Lactic Ac Sepsis Rflx Plasma Lactic Acid Mo (0.7-2.0) mmol/L Calcium 9.3 (8.4-10.2) mg/dL Magnesium 1.6 (1.6-2.3) mg/dL Total Bilirubin 0.9 (0.2-1.3) mg/dL AST 18 (17-59) U/L ALT 15 (4-49) U/L Alkaline Phosphatase 80 (38-126) U/L Troponin I (0.000-0.034) ng/mL NT-Pro-B Natriuret Pep 493 pg/mL Total Protein 6.6 (6.3-8.2) g/dL Albumin 4.4 (3.5-5.0) g/dL Lipase 254 (23-300) U/L 05/23/25 05/23/25 05/23/25 Range/Units 07:27 07:27 09:07 WBC (4.50-10.00) 10*3/uL RBC (4.40-5.60) 10*6/uL Hgb (13.0-17.0) g/dL Hct (39.6-50.0) % MCV (80.0-97.0) fL MCH (27.0-32.0) pg MCHC (32.0-37.0) g/dL Plt Count (140-440) 10*3/uL MPV (9.5-12.2) fL Immature Gran % (Auto) % Neutrophils % % Lymphocytes % % Monocytes % % Eosinophils % % Basophils % % Immature Gran # (0.00-0.04) 10*3/uL Neutrophils # (1.80-7.70) 10*3/uL Lymphocytes # (0.90-5.00) 10*3/uL Monocytes # (0.20-1.00) 10*3/uL Eosinophils # (0.04-0.35) 10*3/uL Basophils # (0.00-0.10) 10*3/uL PT (10.0-12.5) sec INR (<1.2) APTT (22.0-30.0) sec Sodium (137-145) mmol/L Potassium (3.5-5.1) mmol/L Chloride (98-107) mmol/L Carbon Dioxide (22-30) mmol/L Anion Gap mmol/L BUN (9-20) mg/dL Creatinine (0.66-1.25) mg/dL Est GFR (CKD-EPI)AfAm (>60 ml/min/1.73 sqM) Est GFR (CKD-EPI)NonAf (>60 ml/min/1.73 sqM) Glucose (74-99) mg/dL Lactic Ac Sepsis Rflx Y Plasma Lactic Acid Mo 2.1 H* (0.7-2.0) mmol/L Calcium (8.4-10.2) mg/dL Magnesium (1.6-2.3) mg/dL Total Bilirubin (0.2-1.3) mg/dL AST (17-59) U/L ALT (4-49) U/L Alkaline Phosphatase (38-126) U/L Troponin I <0.012 (0.000-0.034) ng/mL NT-Pro-B Natriuret Pep pg/mL Total Protein (6.3-8.2) g/dL Albumin (3.5-5.0) g/dL Lipase (23-300) U/L Disposition Clinical Impression: Atrial fibrillation with RVR Disposition: ADMITTED IP TO THIS [facility] Condition: Stable Decision to Admit Reason: Admit from EC Decision Date: 05/23/25 Decision Time: 10:23
[2025-05-23] MEDS: ONDANSETRON 4 MG/2 ML VIAL IVP STA (07:28)
[2025-05-23] MEDS: DILTIAZEM 125 MG in DEXTROSE 5% IN WATER 100 ML IV SCH (07:30)
[2025-05-23] MEDS: DILTIAZEM 5 MG/ML 5 ML VIAL IVP STA ×2 (07:32→07:35)
[2025-05-23] MEDS: SODIUM CHLORIDE 0.9% 1,000 ML IV STA (07:32)
[2025-05-23 08:20] LABS: Basophils # (A) 0.04 10*3/uL (0.00-0.10); Basophils % (A) 0.3 %; Eosinophils # (A) 0.01 10*3/uL (0.04-0.35); Eosinophils % (A) 0.1 %; HCT 36.4 % (39.6-50.0); HGB 13.0 g/dL (13.0-17.0); Lymphocytes # (A) 1.38 10*3/uL (0.90-5.00); Lymphocytes % (A) 11.6 %; MCH 30.7 pg (27.0-32.0); MCHC 35.7 g/dL (32.0-37.0); MCV 85.8 fL (80.0-97.0); Monocytes # (A) 0.64 10*3/uL (0.20-1.00); Monocytes % (A) 5.4 %; Neutrophils # (A) 9.81 10*3/uL (1.80-7.70); Neutrophils % (A) 82.1 %; Platelet Count 257 10*3/uL (140-440); RBC 4.24 10*6/uL (4.40-5.60); RDW 12.3 % (11.5-14.5); WBC 11.94 10*3/uL (4.50-10.00)
[2025-05-23 08:31] LABS: INR 1.1 (<1.2); Partial Thromboplastin Time 23.7 sec (22.0-30.0); Prothrombin Time 12.0 sec (10.0-12.5)
--- NOTE | 2025-05-23 08:41 | XR ---
EXAMINATION TYPE: XR chest 2V DATE OF EXAM: 05/23/2025 8:36 AM COMPARISON: Chest radiographs from 04/21/2025 CLINICAL INDICATION: Male, 60 years old with history of dysrhythmia; [facility] TECHNIQUE: XR chest 2V Frontal and lateral views of the chest. FINDINGS: Lungs/Pleura: There is no evidence of pleural effusion, focal consolidation, or pneumothorax. Pulmonary vascularity: Unremarkable. Heart/mediastinum: Cardiomediastinal silhouette is unremarkable. Musculoskeletal: No acute osseous pathology. IMPRESSION: No acute cardiopulmonary disease/process. [facility], , 05/23/2025 8:39 AM
[2025-05-23 09:02] LABS: ALT 15 U/L (4-49); AST 18 U/L (17-59); African American GFR (CKD) >90 (>60 ml/min/1.73 sqM); Albumin 4.4 g/dL (3.5-5.0); Alkaline Phosphatase 80 U/L (38-126); Anion Gap 14 mmol/L; Blood Urea Nitrogen 16 mg/dL (9-20); Calcium 9.3 mg/dL (8.4-10.2); Carbon Dioxide 20 mmol/L (22-30); Chloride 111 mmol/L (98-107); Glucose 125 mg/dL (74-99); Lipase 254 U/L (23-300); Magnesium 1.6 mg/dL (1.6-2.3); Non-African American GFR(CKD) >90 (>60 ml/min/1.73 sqM); Potassium 3.9 mmol/L (3.5-5.1); Sodium 145 mmol/L (137-145); Total Protein 6.6 g/dL (6.3-8.2)
[2025-05-23 09:10] LABS: NT-Pro-B-Type Natriuretic Pept 493 pg/mL
[2025-05-23] MEDS ORDERED: NALOXONE 0.4 MG/ML 1 ML VIAL IV PRN (10:25)
[2025-05-23] MEDS: ONDANSETRON 4 MG/2 ML VIAL IVP PRN ×2 (11:52→19:03)
[2025-05-23] MEDS: METOPROLOL SUCCINATE (ER) 25 MG TAB.ER.24H PO SCH (14:31)
[2025-05-23] MEDS: GABAPENTIN 300 MG CAP PO SCH ×2 (14:32→19:04)
--- NOTE | 2025-05-23 14:47 | P.HPIM ---
History of Present Illness H&P Date: 05/23/25 Chief Complaint: Heart palpitations, not feeling well with nausea x 2-3 days This is a 60-year-old gentleman with past medical history significant for newly diagnosed paroxysmal atrial fibrillation on 04/22/2025-discharged on metoprolol with no need for anticoagulation secondary to patient's CHADS2 vascular score 0 as per cardiology, recent left lower extremity shingles with reported sciatica nerve involvement-completed acyclovir treatment, presented to the ER with complaints of not feeling well over the last 2 to 3 days accompanied by cold sweats, nausea, vomiting, poor oral intake and palpitations. On admission lactic acid is 2.1, resolved with IV fluid hydration. Troponin negative x 1, proBNP 493. EKG reported atrial fibrillation with heart rates up into the 140s, bolused and placed on Cardizem drip in addition to IV fluid hydration. Antiemetics initiated. Renal function stable, potassium 3.9, magnesium 1.6. Review of Systems ROS Statement: Those systems with pertinent positive or pertinent negative responses have been documented in the HPI. ROS Other: All systems not noted in ROS Statement are negative. Past Medical History Past Medical History: Atrial Fibrillation History of Any Multi-Drug Resistant Organisms: None Reported Past Surgical History: Appendectomy Additional Past Surgical History / Comment(s): lei left hand Past Psychological History: No Psychological Hx Reported Smoking Status: Former smoker Past Alcohol Use History: None Reported Past Drug Use History: Marijuana Medications and Allergies Home Medications Medication Instructions Recorded Confirmed Type Multivitamins, Thera [Multivitamin 1 tab PO DAILY 04/21/25 05/23/25 History (formulary)] oxyCODONE-APAP 10-325MG [Percocet 1 - 2 tab PO QID PRN 04/21/25 05/23/25 History 10-325 mg] traZODone HCL [Desyrel] 100 mg PO HS 04/21/25 05/23/25 History Metoprolol Succinate (ER) [Toprol 12.5 mg PO DAILY #30 tab 04/22/25 05/23/25 Rx XL] Gabapentin 600 mg PO HS@1930 05/23/25 05/23/25 History Gabapentin [Neurontin] 300 mg PO TID@0130,0730,1330 05/23/25 05/23/25 History Ondansetron [Zofran] 4 mg PO DAILY 05/23/25 05/23/25 History Allergies Allergy/AdvReac Type Severity Reaction Status Date / Time lidocaine Allergy Anaphylaxis Verified 05/23/25 10:44 rocuronium Allergy Anaphylaxis Verified 05/23/25 10:44 Physical Exam Vitals: Vital Signs Temp Pulse Resp BP Pulse Ox 05/23/25 10:15 98.2 F 94 22 140/87 99 05/23/25 10:00 102 H 18 132/95 100 05/23/25 09:45 111 H 19 141/91 100 05/23/25 09:30 91 20 142/107 98 05/23/25 09:15 128 H 23 142/97 99 05/23/25 09:00 115 H 20 140/89 99 05/23/25 08:30 105 H 20 132/86 100 05/23/25 08:15 109 H 20 141/104 100 05/23/25 08:00 105 H 21 137/95 100 05/23/25 07:45 105 H 20 120/83 100 05/23/25 07:36 138 H 20 133/95 100 05/23/25 06:42 98.5 F 73 18 131/89 100 Intake and Output 05/22/25 05/23/25 05/23/25 22:59 06:59 14:59 Other: Weight 72.575 kg VITAL SIGNS: [Reviewed] GENERAL: Alert and oriented x 3, sitting up in bed, no acute distress HEENT: Atraumatic, normocephalic ,conjunctivae normal. eyes normal. Sclera anicteric. NECK: Supple, no JVD. No thyroid enlargement. No LNs CARDIOVASCULAR: S1, S2,irregular, mild tachycardia. No murmur RESPIRATION: Unlabored, equal air entry, clear to auscultation ,breath sounds diminished in the bases. No rhonchi or crackles. No bronchial breathing. ABDOMEN: Soft, nondistended, nontender . No guarding. no masses palpable. No ascites, No hepatosplenomegaly.Bowel sounds heard. LEGS: Left lower calf with dry scabs,no edema. no swelling. No calf tenderness, peripheral pulses intact. NERVOUS SYSTEM: Cranial N 2-12 grossly normal. No focal deficits. Strength and sensation grossly intact.. Skin: no lesions, no rash Results CBC & Chem 7: 05/24/25 07:10 05/24/25 07:10 Labs: Abnormal Lab Results - Last 24 Hours (Table) 05/23/25 05/23/25 05/23/25 Range/Units 07:27 07:27 07:27 WBC 11.94 H (4.50-10.00) 10*3/uL RBC 4.24 L (4.40-5.60) 10*6/uL Hct 36.4 L (39.6-50.0) % Immature Gran # 0.06 H (0.00-0.04) 10*3/uL Neutrophils # 9.81 H (1.80-7.70) 10*3/uL Eosinophils # 0.01 L (0.04-0.35) 10*3/uL Chloride 111 H (98-107) mmol/L Carbon Dioxide 20 L (22-30) mmol/L Creatinine 0.64 L (0.66-1.25) mg/dL Glucose 125 H (74-99) mg/dL Plasma Lactic Acid Mo 2.1 H* (0.7-2.0) mmol/L Assessment and Plan Assessment: Atrial fibrillation with RVR, recently diagnosed 05/11 Dehydration Recently completed Aciclovir for shingles. Hypomagnesemia Hypokalemic secondary to poor oral intake Plan: Continue on current medication regimen ,monitoring and symptomatic treatment.Antiarrhythmics, anticoagulation as per cardiology. IV fluids, antiemetics ordered. The impression and plan of care has been dictated as directed. : I performed a history and examination of this patient, discussed the same with the dictator. I agree with the dictator's note ,documented as a scribe. Any additional findings or plans will be noted.
[2025-05-23] MEDS: POTASSIUM CHLORIDE ER 20 MEQ TAB.ER PO STA (15:50)
[2025-05-23] MEDS: MAGNESIUM SULFATE-D5W PMX 1 GM in DEXTROSE/WATER 1 100ML.BAG IVPB SCH (15:56)
[2025-05-23] MEDS: SODIUM CHLORIDE 0.9% 1,000 ML with POTASSIUM CHLORIDE 40 MEQ IV SCH (16:20)
[2025-05-23] MEDS: ACETAMINOPHEN TAB 325 MG TAB PO PRN (17:05)
[2025-05-24] MEDS: oxyCODONE-APAP 10-325MG 1 EACH TAB PO PRN (06:49)
[2025-05-24 07:33] LABS: Basophils # (A) 0.05 10*3/uL (0.00-0.10); Basophils % (A) 0.3 %; Eosinophils # (A) 0.05 10*3/uL (0.04-0.35); Eosinophils % (A) 0.3 %; HCT 38.6 % (39.6-50.0); HGB 13.3 g/dL (13.0-17.0); Lymphocytes # (A) 2.06 10*3/uL (0.90-5.00); Lymphocytes % (A) 14.1 %; MCH 30.0 pg (27.0-32.0); MCHC 34.5 g/dL (32.0-37.0); MCV 86.9 fL (80.0-97.0); Monocytes # (A) 0.85 10*3/uL (0.20-1.00); Monocytes % (A) 5.8 %; Neutrophils # (A) 11.55 10*3/uL (1.80-7.70); Neutrophils % (A) 78.9 %; Platelet Count 258 10*3/uL (140-440); RBC 4.44 10*6/uL (4.40-5.60); RDW 12.4 % (11.5-14.5); WBC 14.65 10*3/uL (4.50-10.00)
[2025-05-24 07:49] LABS: ALT 13 U/L (4-49); AST 18 U/L (17-59); African American GFR (CKD) >90 (>60 ml/min/1.73 sqM); Albumin 4.4 g/dL (3.5-5.0); Alkaline Phosphatase 82 U/L (38-126); Anion Gap 11 mmol/L; Blood Urea Nitrogen 12 mg/dL (9-20); Calcium 9.5 mg/dL (8.4-10.2); Carbon Dioxide 19 mmol/L (22-30); Chloride 110 mmol/L (98-107); Glucose 114 mg/dL (74-99); Magnesium 1.8 mg/dL (1.6-2.3); Non-African American GFR(CKD) >90 (>60 ml/min/1.73 sqM); Potassium 4.3 mmol/L (3.5-5.1); Sodium 140 mmol/L (137-145); Total Protein 6.6 g/dL (6.3-8.2)
[2025-05-24 09:24] VITALS: RESP 14
[2025-05-24] MEDS: HEPARIN SODIUM,PORCINE 5,000 UNIT/ML 1 ML VIAL SQ SCH (09:26)
[2025-05-24] MEDS: PANTOPRAZOLE 40 MG/10 ML VIAL IV SCH (09:27)
--- NOTE | 2025-05-24 10:27 | P.PN ---
Subjective Progress Note Date: 05/24/25 H&P Date: 05/23/25 Chief Complaint: Heart palpitations, not feeling well with nausea x 2-3 days This is a 60-year-old gentleman with past medical history significant for newly diagnosed paroxysmal atrial fibrillation on 04/22/2025-discharged on metoprolol with no need for anticoagulation secondary to patient's CHADS2 vascular score 0 as per cardiology, recent left lower extremity shingles with reported sciatica nerve involvement-completed acyclovir treatment, presented to the ER with complaints of not feeling well over the last 2 to 3 days accompanied by cold sweats, nausea, vomiting, poor oral intake and palpitations. On admission lactic acid is 2.1, resolved with IV fluid hydration. Troponin negative x 1, proBNP 493. EKG reported atrial fibrillation with heart rates up into the 140s, bolused and placed on Cardizem drip in addition to IV fluid hydration. Antiemetics initiated. Renal function stable, potassium 3.9, magnesium 1.6. 05/24/2025 Cardizem was increased to 10 mg/per hour during the night for uncontrolled heart rate. This morning drip rate returned to 5 mg/hr .telemetry reporting A-fib with controlled ventricular rate. Anticoag ulation/antiarrhythmics as per cardiology. denies any chest pain, palpitations or shortness of breath. Maintaining O2 sats in the high 90s on room air. Electrolyte supplemented yesterday, potassium 4.3, magnesium 1.8. Renal function stable. Objective - Vital Signs Vital signs: Vital Signs Temp 98.1 F 05/24/25 09:22 Pulse 94 05/24/25 09:22 Resp 14 05/24/25 09:22 BP 106/68 05/24/25 09:22 Pulse Ox 97 05/24/25 09:22 FiO2 Intake & Output 05/23/25 05/24/25 05/24/25 18:59 06:59 18:59 Intake Total 125.000 180 Output Total 200 Balance -75.000 180 Weight 70.4 kg Intake: Intake, IV Titration 125.000 Amount Diltiazem 125 mg In 125.000 Dextrose 5% in Water 100 ml @ 5 MG/HR 5 mls/hr IV .Q24H [facility] Rx#:[id number] Oral 180 Output: Urine 200 Other: Voiding Method Urinal Urinal - Exam VITAL SIGNS: [Reviewed] GENERAL: Alert and oriented x 3, sitting up in bed, no acute distress HEENT: Atraumatic, normocephalic ,conjunctivae normal. eyes normal. Sclera anicteric. NECK: Supple, no JVD. No thyroid enlargement. No LNs CARDIOVASCULAR: S1, S2,irregular. No murmur RESPIRATION: Unlabored, equal air entry, clear to auscultation ,breath sounds diminished in the bases. ABDOMEN: Soft, nondistended, nontender . No guarding. Positive bowel sounds LEGS: no edema. no swelling. No calf tenderness, peripheral pulses intact. NERVOUS SYSTEM: Cranial N 2-12 grossly normal. No focal deficits. Strength and sensation grossly intact. Skin: no lesions, no rash - Labs CBC & Chem 7: 05/24/25 07:10 05/24/25 07:10 Labs: Abnormal Lab Results - Last 24 Hours (Table) 05/24/25 05/24/25 Range/Units 07:10 07:10 WBC 14.65 H (4.50-10.00) 10*3/uL Hct 38.6 L (39.6-50.0) % Immature Gran # 0.09 H (0.00-0.04) 10*3/uL Neutrophils # 11.55 H (1.80-7.70) 10*3/uL Chloride 110 H (98-107) mmol/L Carbon Dioxide 19 L (22-30) mmol/L Creatinine 0.55 L (0.66-1.25) mg/dL Glucose 114 H (74-99) mg/dL Assessment and Plan Assessment: Atrial fibrillation with RVR, recently diagnosed 05/11 Dehydration Recently completed Aciclovir for shingles. Hypomagnesemia Hypokalemic secondary to poor oral intake Plan: Continue on current medication regimen ,monitoring and symptomatic treatment.cardiology consult in place , anticoagulation, antiarrhythmic recommendations pending . The impression and plan of care has been dictated as directed. : I performed a history and examination of this patient, discussed the same with the dictator. I agree with the dictator's note ,documented as a scribe. Any additional findings or plans will be noted.
[2025-05-24 12:13] VITALS: BP 119/73; PULSE 64; TEMP 98.2
[2025-05-24] MEDS: DILTIAZEM ORAL 30 MG TAB PO SCH (12:14)
[2025-05-24] MEDS: ASPIRIN 81 MG PO SCH (12:14)
[2025-05-24] MEDS: MAGNESIUM SULFATE-D5W PMX 1 GM in DEXTROSE/WATER 1 100ML.BAG IVPB ONE (12:18)
--- NOTE | 2025-05-24 13:08 | P.DS ---
Providers Date of admission: 05/23/25 09:28 Expected date of discharge: 05/24/25 Attending physician: Lázaro Cortés Consults: 05/23/25 10:25 Consult Physician Routine Consulting Provider: [facility] Consult Reason/Comments: a fib w/ RVR Do you want consulting provider notified?: Yes, Notify in am Primary care physician: Lázaro Cortés Hospital Course: Final Diagnoses: Atrial fibrillation with RVR, recently diagnosed 05/11 Dehydration Recently completed Aciclovir for shingles. Hypomagnesemia Hypokalemic secondary to poor oral intake Hospital course:This is a 60-year-old gentleman with past medical history significant for newly diagnosed paroxysmal atrial fibrillation on 04/22/2025- discharged on metoprolol with no need for anticoagulation secondary to patient's CHADS2 vascular score 0 as per cardiology, recent left lower extremity shingles with reported sciatica nerve involvement-completed acyclovir treatment, presented to the ER with complaints of not feeling well over the last 2 to 3 days accompanied by cold sweats, nausea, vomiting, poor oral intake and palpitations. On admission lactic acid is 2.1, resolved with IV fluid hydration. Troponin negative x 1, proBNP 493. EKG reported atrial fibrillation with heart rates up into the 140s, bolused and placed on Cardizem drip in addition to IV fluid hydration. Antiemetics initiated. Renal function stable, potassium 3.9, magnesium 1.6. 05/24/2025 Cardizem was increased to 10 mg/per hour during the night for uncontrolled heart rate. This morning drip rate returned to 5 mg/hr .telemetry reporting A-fib with controlled ventricular rate. Anticoagulation/antiarrhythmics as per cardiology. denies any chest pain, palpitations or shortness of breath. Maintaining O2 sats in the high 90s on emelyn m air. Electrolyte supplemented yesterday, potassium 4.3, magnesium 1.8. Renal function stable. Evaluated by cardiology, transitioned to oral Cardizem and recommending aspirin 81 mg daily for antiplatelet. Patient is eager for discharge. Cleared by cardiology for discharge. Patient will be discharged home today in a stable condition with guarded prognosis. Staff to confirm cardiology follow-up visit prior to discharge. The impression and plan of care has been dictated as directed. : I performed a history and examination of this patient, discussed the same with the dictator. I agree with the dictator's note ,documented as a scribe. Any additional findings or plans will be noted. Patient Condition at Discharge: Stable Plan - Discharge Summary New Discharge Prescriptions: New Diltiazem Oral [Cardizem*] 30 mg PO QID #120 tab Aspirin EC [Ecotrin Low Dose] 81 mg PO DAILY #30 tab Continue traZODone HCL [Desyrel] 100 mg PO HS Gabapentin 600 mg PO HS@1930 Gabapentin [Neurontin] 300 mg PO TID@0130,30,1330 Multivitamins, Thera [Multivitamin (formulary)] 1 tab PO DAILY oxyCODONE-APAP 10-325MG [Percocet 10-325 mg] 1 - 2 tab PO QID PRN PRN Reason: Pain Metoprolol Succinate (ER) [Toprol XL] 12.5 mg PO DAILY #30 tab Ondansetron [Zofran] 4 mg PO DAILY Discharge Medication List Multivitamins, Thera [Multivitamin (formulary)] 1 tab PO DAILY 04/21/25 [History] oxyCODONE-APAP 10-325MG [Percocet 10-325 mg] 1 - 2 tab PO QID PRN 04/21/25 [History] traZODone HCL [Desyrel] 100 mg PO HS 04/21/25 [History] Metoprolol Succinate (ER) [Toprol XL] 12.5 mg PO DAILY #30 tab 04/22/25 [Rx] Gabapentin 600 mg PO HS@1930 05/23/25 [History] Gabapentin [Neurontin] 300 mg PO TID@129,729,1330 05/23/25 [History] Ondansetron [Zofran] 4 mg PO DAILY 05/23/25 [History] Aspirin EC [Ecotrin Low Dose] 81 mg PO DAILY #30 tab 05/24/25 [Rx] Diltiazem Oral [Cardizem*] 30 mg PO QID #120 tab 05/24/25 [Rx] Follow up Appointment(s)/Referral(s): Lázaro Cortés MD [Primary Care Provider] - 1 Week Activity/Diet/Wound Care/Special Instructions: Confirm follow-up visit with cardiology prior to discharge
[2025-05-24] MEDS: MAGNESIUM SULFATE-D5W PMX 1 GM in DEXTROSE/WATER 1 100ML.BAG IVPB SCH (13:49)
--- NOTE | 2025-05-24 22:41 | P.CRDCN ---
History of Present Illness Consult date: 05/24/25 History of present illness: HISTORY OF PRESENTING ILLNESS: 60-year-old known to Dr. Lassiter. In April 2025 he presented to the hospital because of symptoms of palpitation and nausea. At that time he was diagnosed with new onset atrial fibrillation. He was discharged home on metoprolol and no anticoagulation because of low [id number] score of 0. Prior to largest dis charge he spontaneously cardioverted. Since discharge he has seen Dr. Lassiter in the office and he was noticed to be in great interval atrial fibrillation. He was scheduled for outpatient echocardiogram and a stress test. This time he presented to the hospital because of nausea, decreased oral intake, concerns of dehydration along with A- fib RVR on admission. Cardiology was consulted for A-fib RVR. In the ER he was started on Cardizem drip. At the time of evaluation, he was in rate controlled atrial fibrillation. EKG does not show any signs of significant ST-T wave changes concerning for ischemia other than A-fib RVR His labs showed elevated lactate of 2.1 which is most likely related to his poor oral intake nausea and dehydration. His NT-proBNP was 493, tropes were negative, magnesium was 1.6 repeat 1.8. REVIEW OF SYSTEMS: 14 point review of system is negative except what is mentioned above in HPI. PHYSICAL EXAMINATION: Neck: Brisk carotid upstroke, no jugular venous distention. Lungs: Clear to auscultation. Heart: Regular rate and rhythm, S1-S2, , no murmur or rub. Abdomen: Soft nontender, positive bowel sounds. Extremities: No edema, intact distal pulses. Neuro: Alert, oritented, no focal deficits. Detailed neuro exam was not performed. ASSESSMENT: # Atrial fibrillation with RVR, currently rate controlled. [id number] 0, first diagnosed 04/2025 # Dehydration likely from poor oral intake and nausea # Elevated lactate PLAN: Give additional dose of magnesium, start Cardizem 30 mg every 6 hours. Start aspirin 81 mg. Continue metoprolol succinate 12.5 mg daily. He was kept on low-dose metoprolol on last discharge because of sinus bradycardia after his spontaneous cardioversion. Recommend outpatient follow-up with Dr. Lassiter. If echo and stress test are nor mal, consider flecainide therapy. Eris Jaimes MD, FACC, RPVI Thank you for allowing [facility] to participate in this patient's care. Feel free to reach out in case of any followup questions. 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 states they dont know which one caused it. either lidocaine or rocuronium Past Psychological History: No Psychological Hx Reported Smoking Status: Former smoker Past Alcohol Use History: None Reported Past Drug Use History: Marijuana Medications and Allergies Home Medications Medication Instructions Recorded Confirmed Type Multivitamins, Thera [Multivitamin 1 tab PO DAILY 04/21/25 05/23/25 History (formulary)] oxyCODONE-APAP 10-325MG [Percocet 1 - 2 tab PO QID PRN 04/21/25 05/23/25 History 10-325 mg] traZODone HCL [Desyrel] 100 mg PO HS 04/21/25 05/23/25 History Metoprolol Succinate (ER) [Toprol 12.5 mg PO DAILY #30 tab 04/22/25 05/23/25 Rx XL] Gabapentin 600 mg PO HS@1930 05/23/25 05/23/25 History Gabapentin [Neurontin] 300 mg PO TID@0130,0730,1330 05/23/25 05/23/25 History Ondansetron [Zofran] 4 mg PO DAILY 05/23/25 05/23/25 History Aspirin EC [Ecotrin Low Dose] 81 mg PO DAILY #30 tab 05/24/25 Rx Diltiazem Oral [Cardizem*] 30 mg PO QID #120 tab 05/24/25 Rx Allergies Allergy/AdvReac Type Severity Reaction Status Date / Time lidocaine Allergy Anaphylaxis Verified 05/23/25 10:44 rocuronium Allergy Anaphylaxis Verified 05/23/25 10:44 Physical Exam Vitals: Vital Signs Temp Pulse Pulse Resp BP BP Pulse Ox 05/24/25 12:12 98.2 F 64 14 119/73 99 05/24/25 09:22 98.1 F 94 14 106/68 97 05/24/25 04:31 99 18 117/78 98 05/23/25 23:54 98.1 F 103 H 18 141/92 98 05/23/25 23:09 97.9 F 96 19 129/96 97 Intake and Output 05/24/25 05/24/25 05/24/25 06:59 14:59 22:59 Intake Total 125.000 360 Output Total 200 Balance -75.000 360 Intake: Intake, IV Titration 125.000 Amount Diltiazem 125 mg In 125.000 Dextrose 5% in Water 100 ml @ 5 MG/HR 5 mls/hr IV .Q24H [facility] Rx#:[id number] Oral 360 Output: Urine 200 Other: Voiding Method Urinal Urinal # Voids 1 Weight 70.4 kg Results 05/24/25 07:10 05/24/25 07:10 Cardiac Enzymes 05/24/25 Range/Units 07:10 AST 18 (17-59) U/L CBC 05/24/25 Range/Units 07:10 WBC 14.65 H (4.50-10.00) 10*3/uL RBC 4.44 (4.40-5.60) 10*6/uL Hgb 13.3 (13.0-17.0) g/dL Hct 38.6 L (39.6-50.0) % Plt Count 258 (140-440) 10*3/uL Comprehensive Metabolic Panel 05/24/25 Range/Units 07:10 Sodium 140 (137-145) mmol/L Potassium 4.3 (3.5-5.1) mmol/L Chloride 110 H (98-107) mmol/L Carbon Dioxide 19 L (22-30) mmol/L BUN 12 (9-20) mg/dL Creatinine 0.55 L (0.66-1.25) mg/dL Glucose 114 H (74-99) mg/dL Calcium 9.5 (8.4-10.2) mg/dL AST 18 (17-59) U/L ALT 13 (4-49) U/L Alkaline Phosphatase 82 (38-126) U/L Total Protein 6.6 (6.3-8.2) g/dL Albumin 4.4 (3.5-5.0) g/dL Intake and Output 05/24/25 05/24/25 05/24/25 06:59 14:59 22:59 Intake Total 125.000 360 Output Total 200 Balance -75.000 360 Intake: Intake, IV Titration 125.000 Amount Diltiazem 125 mg In 125.000 Dextrose 5% in Water 100 ml @ 5 MG/HR 5 mls/hr IV .Q24H [facility] Rx#:[id number] Oral 360 Output: Urine 200 Other: Voiding Method Urinal Urinal # Voids 1 Weight 70.4 kg 05/24/25 07:10 05/24/25 07:10
== END 2025-05-24 15:20 | disposition home or self-care (01) ==
LOC: EC 06:37 → 3SCARD 09:28
PROVIDERS: ADMIT Family Medicine; ATTEND Family Medicine
DX: I48.0 Paroxysmal atrial fibrillation (principal); E86.0 Dehydration; E87.6 Hypokalemia; E83.42 Hypomagnesemia; E87.20 Acidosis, unspecified; R63.8 Other symptoms and signs concerning food and fluid intake; Z87.891 Personal history of nicotine dependence; Z79.82 Long term (current) use of aspirin; Z79.899 Other long term (current) drug therapy
CPT/HCPCS: 96376 ×2; 96366 ×2; 96372; 96375 ×2; 96368; 96365; 99291; 36415; 93005; 83880; 80053 ×2; 83605; 83690; 83735 ×2; 84484; 85025 ×2; 85610; 85730; 71046; G0378 ×2; J1644; J2405 ×2; J3480 ×2; J3475 ×2; J2470; J1163 ×3

== ENCOUNTER → 2025-06-06 | Outpatient (CLI) | payer OTHER ==
--- NOTE | 2025-06-06 18:24 | XR ---
EXAMINATION TYPE: XR knee limited LT DATE OF EXAM: 06/06/2025 12:10 PM COMPARISON: None. CLINICAL INDICATION: Male, 60 years old with history of M54.32 B02.23 M25.562 M25.469, pain TECHNIQUE: 2 view(s) obtained. FINDINGS: Medial and lateral compartment joint spaces appear preserved. Patellofemoral joint space appears pres erved. No joint effusion is evident. No acute fracture or dislocation evident. Follow-up exams can be performed 7-10 days from acute trauma for continued pain. IMPRESSION: 1. No acute osseous abnormality left knee [facility], Workstation: [facility], 06/06/2025 6:22 PM
== END | disposition home or self-care (01) ==
LOC: RADXRMAIN 11:34
PROVIDERS: ATTEND Family Medicine
DX: M25.462 Effusion, left knee (principal); M54.32 Sciatica, left side; B02.23 Postherpetic polyneuropathy